=== PATIENT | female | born 1995 | race Caucasian/White ===

== ENCOUNTER 2017-08-28 08:40 | Inpatient (IN) | payer BC, OTHER ==
[~2017-08-28] VITALS: Ht 172.7 cm; Wt 59.9 kg
[2017-08-28 12:30] VITALS: BP 154/94
--- NOTE | 2017-08-28 12:30 | NUR ---
PRE-ADMISSION NOTE Pt is a 22 yr old female, AA&Ox4. Pt is presenting herself to [facility] for alcohol use. Pt is observed with mild anxiety m/b difficulty staying still. VS BP 154/94, P113, R18, O2 98%. Pt was seen and examined by Dr. Mi. Pt is in stable condition to be admitted to the 3rd floor. Will continue with admission.
[2017-08-28] MEDS ORDERED: LORAZEPAM 1 MG TABLET PO PRN ×2 (13:00)
[2017-08-28] MEDS ORDERED: ONDANSETRON 4 MG/2 ML VIAL IM PRN (13:00)
[2017-08-28] MEDS ORDERED: MAG HYDROX/AL HYDROX/SIMETH 30 ML LIQUID UDC PO PRN (13:00)
[2017-08-28] MEDS ORDERED: IBUPROFEN 400 MG TABLET PO PRN (13:00)
[2017-08-28] MEDS ORDERED: ONDANSETRON ODT 4 MG TAB.RAPDIS SL PRN (13:00)
[2017-08-28] MEDS ORDERED: ACETAMINOPHEN 325 MG TABLET PO PRN (13:00)
[2017-08-28] MEDS ORDERED: MAGNESIUM HYDROXIDE 30 ML LIQUID UDC PO PRN (13:00)
[2017-08-28] MEDS ORDERED: LOPERAMIDE HCL 2 MG CAPSULE PO PRN ×2 (13:00)
[2017-08-28] MEDS ORDERED: CLONIDINE HCL 0.1 MG TABLET PO PRN (13:00)
[2017-08-28] MEDS ORDERED: diphenhydrAMINE 50 MG CAPSULE PO PRN (13:00)
[2017-08-28] MEDS ORDERED: THIAMINE HCL 200 MG/2 ML VIAL IM ONE (13:00)
[2017-08-28] MEDS ORDERED: LORAZEPAM 2 MG/1 ML VIAL IM PRN (13:00)
[2017-08-28] MEDS ORDERED: MIRALAX 17 GM POWD.PACK PO PRN (13:00)
[2017-08-28] MEDS ORDERED: DICYCLOMINE HCL 20 MG TABLET PO PRN (13:00)
[2017-08-28 13:21] LABS: *URINE HCG, QUAL NEGATIVE (NEGATIVE)
--- NOTE | 2017-08-28 13:33 | NUR ---
ADMISSION NOTE Pt is a 22 yr old female, AA&Ox4. Pt is presenting herself to [facility] for ETOH Dependence. Pt is observed with mild anxiety m/b difficulty staying still. Respirations are even and unlabored. Lung sounds are clear. Pt denies any n/v. No tremors seen or felt. Body check was complete. Pt is noted with multiple healing self-inflicted lacerations on right and left arm and right hip. Pictures were taken and placed in chart. Pt denies any SI/HI within the past 30 days. Pt states of having Medical Hx of PNA, Bronchitis, Asthma, Anxiety, Depression, Eating disorder, Anemia, Hx of Sz r/t benzo w/d, Cardiac arrest, and Rhinoplasty sx. Pt denies taking any home medication. Pt states PCP is Dr. Hansa Brice in [facility]. Pt is full code, regular diet and allergies to PCN, azithromycin and is lactose in tolerance. Pt states of having tremors, n/v and depression when trying to stop drinking. SUBSTANCE USE: 1. ETOH - Pt states of first drinking at the age of 15 but became a problem 2.5 yrs ago. Pt states of drinking 750ml of tequila daily. Last drink was on 08/28/17 prior to admission. pt states of taking 4-6 shot of tequila. 2. Cocaine- Pt states of snorting 0.5-1g for the past 4 months. Pt states last use was on 08/28/17 prior to admission. Pt states of snorting .2g. 3. Marijuana - Pt states of smoking 1/8g once a week for the past 6 yrs. Last use was on 08/28/17 prior to admission. Pt states of smoking 1/8. Pt [facility] age of 18 years [facility] for benzo use. Pt remains sober from benzo use. Pt states she went into [facility]. Pt was oriented around unit and equipment in room. Pt is to start on 5 day Ativan taper on 08/29/17. Pt was educated on medication regimen and plan of care. Pt was able to verbalize understanding. Pt is on fall and seizure precautions. Bed kept in low position and locked with side rails up x2.Call light is within reach. Will continue to monitor.
[2017-08-28 13:42] LABS: BASOPHILS # (AUTO) 0.1 K/uL (0.0-8.0); BASOPHILS % (AUTO) 0.9 % (0.0-2.0); EOSINOPHILS % (AUTO) 0.2 % (0.0-7.0); HEMATOCRIT 45.4 % (37-47); LYMPHOCYTES # (AUTO) 1.1 K/UL (0.8-4.8); LYMPHOCYTES % (AUTO) 16.9 % (20.5-51.5); MEAN CORPUSCULAR HEMOGLOBIN 30.7 UUG (27.0-31.0); MEAN CORPUSCULAR HGB CONC 33 g/dL (32.0-37.0); MEAN CORPUSCULAR VOLUME 92.8 FL (81.0-99.0); MONOCYTES # (AUTO) 0.4 K/UL (0.1-1.30); MONOCYTES % (AUTO) 6.3 % (0.0-11.0); NEUTROPHILS % (AUTO) 75.7 % (38.5-71.5); PLATELET COUNT (AUTO) 392 K/UL (150-450); RED BLOOD CELL COUNT(AUTO) 4.89 MIL/UL (4.2-5.4); WHITE BLOOD COUNT (AUTO) 6.6 K/UL (4.0-11.2)
[2017-08-28 13:58] LABS: BILIRUBIN,TOTAL 0.5 mg/dL (0.2-1.0); CREATININE 0.7 mg/dL (0.6-1.3); MAGNESIUM 2.1 mg/dL (1.8-2.4); POTASSIUM 3.4 mmol/L (3.5-5.1); TOTAL PROTEIN, SERUM 9.2 g/dL (6.4-8.2)
[2017-08-28 14:48] LABS: *AMPHETAMINE, URINE NEGATIVE (NEGATIVE); *BARBITURATE, URINE NEGATIVE (NEGATIVE); *CANNABINOID, URINE NEGATIVE (NEGATIVE); *COCCAINE, URINE POSITIVE (NEGATIVE); *OPIATE, URINE NEGATIVE (NEGATIVE); *PHENCYCLIDINE SCREEN,URINE NEGATIVE (NEGATIVE)
[2017-08-28] MEDS ORDERED: POTASSIUM CHLORIDE 10 MEQ CAPSULE.SA PO ONE (15:00)
[2017-08-28 16:00] VITALS: BP 129/76
--- NOTE | 2017-08-28 18:53 | NUR ---
END OF SHIFT Pt is a 22 yr old female, AA&Ox4. pt is a newly admit to [facility] for ETOH Dependence and is to start on a 5 day Ativan taper on 08/29/17. Pt is full code, regular diet and allergies to lactase, PCN, and azithromycin. Pt is on fall and seizure precautions. No PRN's were given. Dr. Mi was made aware of abnormal labs. Potassium was replaced. Pt was encouraged increase fluid intake. Last CIWA score was 4 at 1600. Call light is within reach.
--- NOTE | 2017-08-28 19:15 | NUR ---
START OF SHIFT NOTE : Pt is a 22 yr old female admitted on 08/28/2017 to [facility] for ETOH Dependence and started on a 5 day Ativan taper on 08/29/17. Pt is full code, regular diet and allergies to lactase, PCN, and azithromycin. Pt is on fall and seizure precautions. Pt. is alert, orientedx4, cooperative and friendly. Safety measures in place : bed on lowest position with side rails x2 up for safety, call light within reach. Will continue to monitor closely and offer help.
[2017-08-28] MEDS ORDERED: LORAZEPAM 1 MG TABLET PO ONE (21:00)
[2017-08-28] MEDS: GABAPENTIN 300 MG CAPSULE PO SCH (21:17)
[2017-08-29] VITALS (7 sets, daily range): BP systolic 109–129; BP diastolic 58–85
--- NOTE | 2017-08-29 06:38 | NUR ---
END OF SHIFT NOTE : Pt is a 22 yr old female [facility] and started on a 5 day Ativan taper on 08/29/17. Pt is full code, regular diet and allergies to lactase, PCN, and azithromycin. Pt is on fall and seizure precautions. Pt remains compliant with the treatment plan. No PRNs were given during my shift. V/S remain WNL. RR=16, even and unlabored, lungs clear upon auscultation, abdomen soft and non- distended. Pt denies nausea, vomiting and diarrhea. CIWA taken when pt. was alert during the night, LAST CIWA=4 at 0400 , INTAKE=1,000 ml, voided x 1, slept 8 hours. Safety measures in place : bed on lowest position with side rails x2 up for safety, call light within reach. Will continue to monitor closely and offer help.
--- NOTE | 2017-08-29 07:00 | NUR ---
Start of Shift Notes: Received patient in her room. Alert and oriented x 4. Verbally responsive. Able to make needs known. Respirations even and unlabored. No SOB noted. Skin warm and dry to touch. Abdomen soft and non-distended with (+) BS in all 4 quadrants. No complains of N/V/D or constipation noted. Bladder non-distended. Voids independently. Patient is a 22 year old female admitted for ETOH/cocaine dependence who was placed on a 5-day Ativan taper as ordered. No adverse reactions noted. Has past medical hx of anxiety, depression, PNA, bronchiits, anemia, eating disorder, cardiac arrest, seizures, rhinoplasty and seizures. FULL CODE. Regular diet. Allergic to lactose, PCN and azythromycin. On fall and seizure precautions. Educated patient on the current plan of care for the day and her medication regimen. Encouraged oral fluid intake and encouraged group participation to learn new skills to prevent relapse. Will continue to monitor.
[2017-08-29] MEDS: GABAPENTIN 300 MG CAPSULE PO SCH ×2 (08:15→21:27)
[2017-08-29] MEDS: FOLIC ACID 1 MG TABLET PO SCH (08:15)
[2017-08-29] MEDS: MULTIVITAMINS,THERAPEUTIC TABLET PO SCH (08:15)
[2017-08-29] MEDS: LORAZEPAM 1 MG TABLET PO SCH ×4 (08:15→21:27)
[2017-08-29] MEDS: THIAMINE HCL 100 MG TABLET PO SCH (08:15)
[2017-08-29] MEDS ORDERED: TUBERCULIN,PURIF.PROT.DERIV. 5 TU/0.1 ML TEST ID ONE (09:00)
--- NOTE | 2017-08-29 09:10 | NUR ---
TB test at 0900 not administered: Patient refused TB test at this time. Educated patient on the risk and benefits but patient still refused. Patient strongly refuses and states "No, no more needles!." Education provided.
[2017-08-29 09:12] LABS: HEPATITIS B SURFACE AG Negative (Negative)
--- NOTE | 2017-08-29 19:01 | NUR ---
End of Shift Notes: Patient continues to be on 5-day Ativan taper as ordered. No adverse reactions noted. Patient is tolerating taper well. VS monitored closely. No significant abnormalities noted. Withdrawal symptoms were closely monitored. Initial CIWA 6, patient presented with anxiety, agitation, tremors and sweats. Last CIWA 4. Patient refused TB test at this time. MD aware. No cough. No congestion noted. Compliant with care and treatment. Unable to participate in group and activities due to her withdrawal symptoms. All needs met and attended. Will continue to monitor closely.
--- NOTE | 2017-08-29 19:15 | NUR ---
START OF SHIFT NOTE : Pt is a 22 yr old female admitted on 08/28/2017 to [facility] for ETOH Dependence and started on a 5 day Ativan taper on 08/29/17. Pt is full code, regular diet and allergies to lactase, PCN, and azithromycin. Pt is on fall and seizure precautions. Pt. is alert, orientedx4, cooperative and friendly, is resting in her room. Safety measures in place : bed on lowest position with side rails x2 up for safety, call light within reach. Will continue to monitor closely and offer help.
--- NOTE | 2017-08-29 21:00 | NUR ---
PRN BENADRYL Pt. complains of increased level of sleeplessness. PRN BENADRYL given as ordered. Safety measures in place : bed on lowest position with side rails x2 up for safety, call light within reach. Will continue to monitor closely and offer help.
[2017-08-29] MEDS: SERTRALINE HCL 50 MG TABLET PO SCH (21:27)
--- NOTE | 2017-08-29 22:00 | NUR ---
RE-ASSESSMENT LEMUEL Pt. is sleeping, RR=16, unlabored and even . Safety measures in place : bed on lowest position with side rails x2 up for safety, call light within reach. Will continue to monitor closely and offer help.
--- NOTE | 2017-08-30 06:54 | NUR ---
END OF SHIFT NOTE : Pt is a 22 yr old female admitted on 08/28/2017 to [facility] for ETOH Dependence and started on a 5 day Ativan taper on 08/29/17. Pt is full code, regular diet and allergies to lactase, PCN, and azithromycin. Pt is on fall and seizure precautions. Pt remains compliant with the treatment plan. No PRNs were given during my shift. V/S remain WNL. RR=16, even and unlabored, lungs clear upon auscultation, abdomen soft and non- distended. Pt denies nausea, vomiting and diarrhea. CIWA taken when pt. was alert during the night, LAST CIWA= 4 at 0400 , INTAKE=2,296 ml, voided x 4, BMx4, small amount semi-formed, slept 8 hours. Safety measures in place : bed on lowest position with side rails x2 up for safety, call light within reach. Will continue to monitor closely and offer help. Addendum: 08/30/17 at 0657 by JUANI STRATTON RN BENADRYL GIVEN IN THE EVENING
--- NOTE | 2017-08-30 07:38 | NUR ---
START OF SHIFT Pt is a 22 yr old female, AA&Ox4. Pt was admitted on 08/28/17 for ETOH dependence and is on 5 day Ativan taper as ordered. Pt is full code, regular diet and allergies to PCN, Azithromycin and lactase. received report from traveling clerk nurse. Pt received Benadryl PRN for sleep, medication was effective. Pt slept for 8 hrs. Last CIWA score was 4 at 0400. Pt is currently in bed resting with respirations even and unlabored. No acute distress noted. Pt states of having x1 episodes of diarrhea. Imodium PRN was offered but pt refused. Encouraged increase fluid intake. Skin is intact, warm and dry to touch. No tremors seen or felt. Safety precauitons observed. Call light is within reach. Will continue to monitor.
[2017-08-30 08:00] VITALS: BP 110/66
[2017-08-30] MEDS: FOLIC ACID 1 MG TABLET PO SCH (09:08)
[2017-08-30] MEDS: MULTIVITAMINS,THERAPEUTIC TABLET PO SCH (09:08)
[2017-08-30] MEDS: THIAMINE HCL 100 MG TABLET PO SCH (09:08)
[2017-08-30] MEDS: LORAZEPAM 1 MG TABLET PO SCH ×3 (09:08→20:27)
[2017-08-30] MEDS: GABAPENTIN 300 MG CAPSULE PO SCH ×3 (09:08→20:27)
--- NOTE | 2017-08-30 11:50 | NUR ---
PRN GIVEN Pt is observed with x1 episode of crying and c/o abdominal cramping and muscle aching 04/10. Notified Dr. Mi with okay to given Clonidine 0.1mg PO PRN. Pt received Motrin 400mg PO PRN, Bentyl 20mg PO PRN and Clonidine 0.1mg PO PRN. Medication kadeem well. Encouraged increase fluid intake. Will continue to monitor.
[2017-08-30 12:00] VITALS: BP 143/92
[2017-08-30] MEDS ORDERED: LORAZEPAM 1 MG TABLET PO ONE (12:30)
--- NOTE | 2017-08-30 12:50 | NUR ---
PRN RE-ASSESSMENT Clonidine 0.1mg PO PRN, Motrin PRN and Bentyl PRN was effective. Pt is currently in bed resting with respirations even unlabored. No acute distress noted. Will continue to monitor.
--- NOTE | 2017-08-30 13:30 | NUR ---
ENDORSEMENT GIVEN Reported to RN nurse to continue with care.
--- NOTE | 2017-08-30 14:00 | NUR ---
Taken over pt's care, pt in bed awake, alert, oriented verbally responsive, denies any discomfort, complient with meds, attend to groups, encourage pos fluids.
[2017-08-30 16:00] VITALS: BP 110/60
--- NOTE | 2017-08-30 16:27 | NUR ---
Therapist prompted client about group times. Client stated she would try to attend groups today.
[2017-08-30] MEDS ORDERED: LORAZEPAM 1 MG TABLET PO PRN ×2 (19:00)
[2017-08-30] MEDS ORDERED: HYDROXYZINE PAMOATE 25 MG CAPSULE PO PRN (19:00)
--- NOTE | 2017-08-30 19:30 | NUR ---
Start of Shift Notes: Report received from day shift nurse. Pt is a 22F, admitted for ETOH Dependence on 08/28/17. Pt was attending group activity upon start of shift. Pt is AOx4 without s/s of acute distress noted. Pt is full code, on regular diet, and on fall/seizure precautions. Pt noted with allergy to Lactose, PCN, and Azithromycin. Pt reports hx of Anxiety, Depression, PNA, Bronchitis, Cardiac Arrest, Sz r/t withdrawal, Rhinoplasty Sx, and Asthma. Pt is currently on 5-day Ativan taper to manage withdrawal symptoms. Per day shift nurse, pts last CIWA was 9 at 1600. Bed in lowest position. Side rails up x2. Call light functioning and within reach. All needs attended and met. Will continue to monitor.
[2017-08-30 20:00] VITALS: BP 123/75
[2017-08-30] MEDS: SERTRALINE HCL 50 MG TABLET PO SCH (20:27)
[2017-08-31] VITALS: BP 106/56
[2017-08-31 04:00] VITALS: BP 108/61
--- NOTE | 2017-08-31 07:03 | NUR ---
End of Shift Note: Pt is 22F, admitted for ETOH Dependence on 08/28/17. Pt is AOx4 without s/s of acute distress noted. Pt is full code, on regular diet, and on fall/seizure precautions. Pt noted with allergy to Lactose, PCN, and Azithromycin. Pt reports hx of Anxiety, Depression, PNA, Bronchitis, Cardiac Arrest, Sz r/t withdrawal, Rhinoplasty Sx, and Asthma. Pt slept for 10 hours. Respirations even and unlabored. Last CIWA score was 3 at 0400. No N/V noted during the shift. Fall and Sz precautions observed. Bed in lowest position. Side rails up x2. Call light functioning and within reach. All needs attended and met. Will endorse to day shift nurse.
[2017-08-31 08:00] VITALS: BP_SYST 110; BP_SYST 114; BP_DIAS 53; BP_DIAS 59
--- NOTE | 2017-08-31 08:30 | NUR ---
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
[2017-08-31] MEDS: LORAZEPAM 1 MG TABLET PO SCH ×4 (09:02→21:31)
[2017-08-31] MEDS: FOLIC ACID 1 MG TABLET PO SCH (09:02)
[2017-08-31] MEDS: MULTIVITAMINS,THERAPEUTIC TABLET PO SCH (09:02)
[2017-08-31] MEDS: THIAMINE HCL 100 MG TABLET PO SCH (09:02)
[2017-08-31] MEDS: GABAPENTIN 300 MG CAPSULE PO SCH ×3 (09:02→21:32)
[2017-08-31 12:51] VITALS: BP 132/84
--- NOTE | 2017-08-31 13:56 | NUR ---
Pt in room stated feeling better today and with good spirit, had makeup on and clean cloth, ativan was offer her by 1300 dose but refused saying i do not think I need it, Ill let u know later but still pt declined meds.
--- NOTE | 2017-08-31 14:57 | NUR ---
DR Mi was call d/t pt refused ativan at 1300, and now refused neurontin and stated thta she will not take any of meds without talking to md today.
[2017-08-31 16:59] VITALS: BP 124/77
--- NOTE | 2017-08-31 17:18 | NUR ---
Client was prompted to attend group by therapist.
--- NOTE | 2017-08-31 17:23 | NUR ---
pt in activity, took her meds denies any discomfort at this time, states feeling better, no distress.
--- NOTE | 2017-08-31 19:30 | NUR ---
Start of Shift Notes: Report received from day shift nurse. Pt is a 22F, admitted for ETOH Dependence on 08/28/17. Pt was attending group activity upon start of shift. Pt is AOx4 without s/s of acute distress noted. Pt is full code, on regular diet, and on fall/seizure precautions. Pt noted with allergy to Lactose, PCN, and Azithromycin. Pt reports hx of Anxiety, Depression, PNA, Bronchitis, Cardiac Arrest, Sz r/t withdrawal, Rhinoplasty Sx, and Asthma. Pt is currently on 5-day Ativan taper to manage withdrawal symptoms. Per day shift nurse, pts last CIWA was 2 at 1700. Bed in lowest position. Side rails up x2. Call light functioning and within reach. All needs attended and met. Will continue to monitor.
[2017-08-31 20:00] VITALS: BP 116/67
[2017-08-31] MEDS: SERTRALINE HCL 50 MG TABLET PO SCH (21:00)
[2017-09-01] VITALS: BP 102/54
[2017-09-01 04:00] VITALS: BP 133/78
--- NOTE | 2017-09-01 07:02 | NUR ---
End of Shift Note: Pt is 22F, admitted for ETOH Dependence on 08/28/17. Pt is AOx4 without s/s of acute distress noted. Pt is full code, on regular diet, and on fall/seizure precautions. Pt noted with allergy to Lactose, PCN, and Azithromycin. Pt reports hx of Anxiety, Depression, PNA, Bronchitis, Cardiac Arrest, Sz r/t withdrawal, Rhinoplasty Sx, and Asthma. Pt slept for 8 hours. Respirations even and unlabored. Last CIWA score was 2 at 0400. No N/V noted during the shift. Fall and Sz precautions observed. Bed in lowest position. Side rails up x2. Call light functioning and within reach. All needs attended and met. Will endorse to day shift nurse.
--- NOTE | 2017-09-01 07:03 | NUR ---
Start of Shift Notes: Received patient in her room. Alert and oriented x 4. Verbally responsive. Able to make needs known. Respirations even and unlabored. No SOB noted. Skin warm and dry to touch. Abdomen soft and non-distended with (+) BS in all 4 quadrants. No complains of N/V/D or constipation noted. Bladder non-distended. Voids independently. Patient is a 22 year old female admitted for ETOH/cocaine dependence who was placed on a 5-day Ativan taper as ordered. No adverse reactions noted. Has past medical hx of anxiety, depression, PNA, bronchitis, anemia, eating disorder, cardiac arrest, seizures, rhinoplasty and seizures. FULL CODE. Regular diet. Allergic to lactose, PCN and azithromycin. On fall and seizure precautions. Educated patient on the current plan of care for the day and her medication regimen. Encouraged oral fluid intake and encouraged group participation to learn new skills to prevent relapse. Will continue to monitor.
[2017-09-01 08:00] VITALS: BP 108/65
[2017-09-01] MEDS: FOLIC ACID 1 MG TABLET PO SCH (08:26)
[2017-09-01] MEDS: THIAMINE HCL 100 MG TABLET PO SCH (08:26)
[2017-09-01] MEDS: GABAPENTIN 300 MG CAPSULE PO SCH ×3 (08:26→20:42)
[2017-09-01] MEDS: MULTIVITAMINS,THERAPEUTIC TABLET PO SCH (08:26)
[2017-09-01] MEDS: LORAZEPAM 1 MG TABLET PO SCH ×2 (09:00→15:00)
--- NOTE | 2017-09-01 09:59 | NUR ---
Ativan at 1 mg PO at 0900 not administered: Patient refused to administer Ativan 1 mg PO as ordered. Educated patient on the seizure risk involved and benefits of taking the medication. Patient still strongly refuses the medication and states "I don't like how it makes me feel." Notified Dr. Mi and will speak to the patient.
[2017-09-01 12:00] VITALS: BP 129/83
--- NOTE | 2017-09-01 15:58 | NUR ---
Ativan at 1mg PO at 1500 refused: Patient noted to refuse another dose of Ativan at this time. Patient strongly believes that she feels OK and that she does not need it at this time. Despite multiple staff and MD encouraging her to take the medications. Patient continues to refuse. Notified MD Mi. Will continue to monitor.
[2017-09-01 16:00] VITALS: BP 134/86
--- NOTE | 2017-09-01 18:48 | NUR ---
End of Shift Notes: Patient continues to be on 5-day Ativan taper as ordered. No advere reactions noted. VS monitored closely. No significant abnormalities noted. Withdrawal symptoms were closely monitored. Initial CIWA 2 due to mild anxiety. Last CIWA 6. Patient refused Ativan at 0900 and 1500. Encouraged to take but still refused despite explanasiont of benefits and risk involved, especially seizure risk. MD aware. Encouraged to attend group and activities. All needs met and attended. Will continue to monitor closely.
[2017-09-01 20:00] VITALS: BP 138/88
--- NOTE | 2017-09-01 20:00 | NUR ---
Start of Shift Pt is a 22 year old female admitted for ETOH dependence, placed on 5 day Ativan taper completed. Pt reported consuming ETOH 750ml/daily, cocaine 0.5g 1g and marijuana an 8th once a week. PMH: anxiety, depression, PNA, bronchitis, anemia, eating disorder, cardiac arrest, seizure r/t withdrawal, asthma and rhinoplasty sx. Pt reports allergies to lactose, PCN and azithromycin, fall/seizure precautions, regular diet and full code. Upon assessment, pt reports feeling anxious, reports mild body aches, respirations even/unlabored, denies SOB/chest pain, denies n/v/d, medications due. Pt is scheduled for discharge today. Safety measures in place, call light within reach, side rails up x2, bed locked and in low position. Will continue to monitor.
[2017-09-01] MEDS ORDERED: HYDR-3895 PO (23:29)
[2017-09-01] MEDS ORDERED: GABA-534 PO ×2 (23:29)
[2017-09-01] MEDS ORDERED: DIPH50CA37 PO (23:29)
[2017-09-02] VITALS: BP 131/86
--- NOTE | 2017-09-02 | NUR ---
CIWA deferred d/t sleep, to assess while awake as ordered. BP 131/86, pulse 92, resp 16, SpO2 96% room air, temp 98.1, no pain Safety measures in place, will continue to monitor.
--- NOTE | 2017-09-02 04:00 | NUR ---
CIWA deferred d/t sleep, to assess while awake as ordered. Pt refused to be woken up for 0400 VS Safety measures in place, will continue to monitor.
--- NOTE | 2017-09-02 07:00 | NUR ---
End of Shift Pt is a 22 year old female admitted for ETOH dependence, placed on 5 day Ativan taper completed. Pt reported consuming ETOH 750ml/daily, cocaine 0.5g 1g and marijuana an 8th once a week. PMH: anxiety, depression, PNA, bronchitis, anemia, eating disorder, cardiac arrest, seizure r/t withdrawal, asthma and rhinoplasty sx. Pt reports allergies to lactose, PCN and azithromycin, fall/seizure precautions, regular diet and full code. During shift, pt reported feeling anxious, reported mild body aches scheduled medications administered, CIWA 1. No PRN medications administered during shift. Pt is scheduled for discharged today. Pt slept for 7 hours, intake of 1375 ml PO, voids x2 and stool x0. Safety measures in place, call light within reach, side rails up x2, bed locked and in low position. Endorsed to day shift nurse.
--- NOTE | 2017-09-02 07:32 | NUR ---
BEGINNING OF SHIFT Patient endorsement report received from overnight cashier nurse, all pertinent information discussed. patient is a 22 year old female admitted on: 08/28/2017, patient with admitting Dx: etoh dependence, with substance use of: cocaine and marijuana, patient completed 5 day Ativan taper and is scheduled to be discharged this morning. Patient self motivated towards sobriety. Received patient in her room. Alert and oriented x 4.Has past medical hx of anxiety, depression, PNA, bronchitis, anemia, eating disorder, cardiac arrest, seizures, rhinoplasty and seizures. FULL CODE. Regular diet. Allergic to lactose, PCN and azithromycin. On fall and seizure precautions. Educated patient on the current plan of care for the day and her medication regimen, will also educate regarding all discharge instructions. Safety measures in place. call light kept with in reach, will continue to monitor closely.
[2017-09-02 07:57] VITALS: BP 118/73
[2017-09-02 08:05] VITALS: BP 118/73
[2017-09-02] MEDS: GABAPENTIN 300 MG CAPSULE PO SCH (08:06)
[2017-09-02] MEDS: MULTIVITAMINS,THERAPEUTIC TABLET PO SCH (08:07)
[2017-09-02] MEDS: THIAMINE HCL 100 MG TABLET PO SCH (08:07)
[2017-09-02] MEDS: FOLIC ACID 1 MG TABLET PO SCH (08:07)
[2017-09-02] MEDS ORDERED: LORAZEPAM 1 MG TABLET PO SCH (09:00)
--- NOTE | 2017-09-02 09:50 | NUR ---
DISCHARGE Patient discharged off the unit at 0942 in stable condition, not in any apparent acute distress. Patient discharged to [facility], patient noted self motivated towards sobriety. Vital signs WNL, patient with no s/sx of withdrawal. Patient with last ciwa score of: 0. Patients medications were administered as ordered, well tolerated. Patients prescriptions, and personal belongings, and discharge instructions were placed in patients personal duffel bag. Patient discharged off the unit at 0942
[2017-09-03] MEDS ORDERED: LORAZEPAM 1 MG TABLET PO SCH (09:00)
== END 2017-09-02 09:42 | disposition home or self-care (01) | DRG 895 ==
LOC: SRC 11:21
PROVIDERS: ADMIT Internal Medicine; ATTEND Internal Medicine
PROC: HZ2ZZZZ Detoxification Services for Substance Abuse Treatment (ICD-10-PCS; principal; 2017-08-28)
PROC: HZ41ZZZ Group Counseling for Substance Abuse Treatment, Behavioral (ICD-10-PCS; principal; 2017-08-28)
PROC: HZ31ZZZ Individual Counseling for Substance Abuse Treatment, Behavioral (ICD-10-PCS; 2017-08-29)
DX: F10.232 Alcohol dependence with withdrawal with perceptual disturbance (principal); Z86.74 Personal history of sudden cardiac arrest; I15.9 Secondary hypertension, unspecified; F50.9 Eating disorder, unspecified; K70.10 Alcoholic hepatitis without ascites; E87.6 Hypokalemia; F17.210 Nicotine dependence, cigarettes, uncomplicated; Y90.9 Presence of alcohol in blood, level not specified; J45.20 Mild intermittent asthma, uncomplicated; Z91.89 Other specified personal risk factors, not elsewhere classified; F41.9 Anxiety disorder, unspecified; F13.21 Sedative, hypnotic or anxiolytic dependence, in remission; F14.10 Cocaine abuse, uncomplicated; Z83.3 Family history of diabetes mellitus; Z81.1 Family history of alcohol abuse and dependence; Z82.49 Family history of ischemic heart disease and other diseases of the circulatory system; F32.9 Major depressive disorder, single episode, unspecified
CPT/HCPCS: 36415; 70030-TC; 80307; 80353; 83735; 84703; 85025; 86592; 86705; 86803; 87340; 87806; A4663; G0480; J3411; Q0163